=== PATIENT | female | born 1975 | race Asian ===

== ENCOUNTER 2016-10-21 04:52 | Inpatient (IN) | payer OTHER ==
[~2016-10-21] VITALS: Ht 165.1 cm; Wt 54.4 kg
[2016-10-21 05:06] VITALS: BP 113/74
--- NOTE | 2016-10-21 05:27 | Emergency Room Report ---
History of Present Illness General Chief Complaint: Allergic Reaction Source: Patient Present Illness [facility] This is a 41-year-old female who is right-hand dominant. She presents with chief complaint of possible allergic reaction to her right hand. She woke up at 2 AM felt pain in her right hand. It then swell up. Now is tracking up her arm to the axilla area. Pain is throbbing 10 out of 10. [place] warm to the touch. Denies any trauma. She said she had a similar reaction to her right lower leg a couple weeks ago. Seen a cannon pinion adjuster receive a shot in her buttock. She thinks it was antibiotics. Denies any other complaint. Allergies: Coded Allergies: ASPIRIN (Verified Allergy, Intermediate, hives, 10/21/16) Patient History Past Medical History: see triage record, old chart reviewed Past Surgical History: other Pertinent Family History: none Social History: Denies: smoking Now: No Immunizations: other Reviewed Nursing Documentation: PMH: Agreed, PSxH: Agreed Nursing Documentation-PMH Past Medical History: No History, Except For Hx Gastrointestinal Problems: Yes - Diverticulitis Review of Systems Eye: Denies: blurred vision, eye pain ENT: Denies: ear pain, nose congestion, throat swelling Respiratory: Denies: cough, shortness of breath Cardiovascular: Denies: chest pain, palpitations Gastrointestinal: Denies: abdominal pain, diarrhea, nausea, vomiting Musculoskeletal: Denies: back pain, joint pain Skin: Denies: rash Neurological: Denies: headache, numbness Endocrine: Denies: increased thirst, increased urine Hematologic/Lymphatic: Denies: easy bruising All Other Systems: negative except mentioned in HPI Physical Exam Vital Signs Date Time Temp Pulse Resp B/P Pulse Ox O2 Delivery O2 Flow Rate FiO2 10/21/16 04:57 98.1 87 18 113/74 98 Room Air vitals normal Sp02 EP Interpretation: reviewed, normal General Appearance: well appearing, no apparent distress, alert Head: normocephalic, atraumatic Eyes: bilateral eye EOMI, bilateral eye PERRL ENT: hearing grossly normal, normal pharynx Neck: full range of motion, supple, no meningismus Respiratory: chest non-tender, lungs clear, normal breath sounds Cardiovascular #1: regular rate, rhythm, no murmur Gastrointestinal: normal bowel sounds, non tender, no mass, no organomegaly, no bruit, non-distended Musculoskeletal: back normal, gait/station normal, normal range of motion, other - Right hand: She has diffuse edema to her hand. Warm to the touch. Tender to palpation. No crepitance. There is a small abrasion in the dorsal aspect just proximal to the fifth metacarpal joint. No abscess noted. There is lymphangitic spread up the bicep area. Neurologic: alert, oriented x3 Psychiatric: mood/affect normal Skin: warm/dry Medical Decision Making Diagnostic Impression: Primary Impression: Cellulitis of hand, right Additional Impression: Acute lymphangitis ER Course This patient presents with cellulitis of her hand with lymphangitic spread to the axilla area. Because of the aggressive nature, she warrant admission for IV antibiotics. Will also cover for MRSA. I see no evidence of septic joint or necrotizing fasciitis. No evidence of any abscess. Last Vital Signs Date Time Temp Pulse Resp B/P Pulse Ox O2 Delivery O2 Flow Rate FiO2 10/21/16 05:06 98.1 87 18 113/74 98 Room Air Status: improved Disposition: ADMITTED INPATIENT Condition: Serious HERNANDO DAMON M.D. Oct 21, 2016 05:27
[2016-10-21] MEDS ORDERED: Vancomycin 1gm inj IVPB ONE (05:28)
[2016-10-21] MEDS ORDERED: Ketorolac 60mg Inj IV ONE (05:30)
[2016-10-21 06:00] VITALS: BP 107/54
[2016-10-21 06:48] LABS: ANION GAP 14 (5-15); CALCIUM 8.9 mg/dL (8.6-10.2); CARBON DIOXIDE 25 mEQ/L (20-30); CHLORIDE 95 mEQ/L (98-107); CREATININE 0.7 mg/dL (0.5-0.9); GLOMERULAR FILTRATION RATE > 60 mL/min (>60); HEMOLYSIS 22; SODIUM 134 mEQ/L (135-145)
[2016-10-21 06:53] LABS: BASOPHILS % (AUTO) 0.4 % (0.0-2.0); EOSINOPHILS % (AUTO) 1.3 % (0.0-3.0); LYMPHOCYTES % (AUTO) 27.3 % (20.0-45.0); MEAN CORPUSCULAR HEMOGLOBIN 35.5 PG (27.0-31.0); MEAN CORPUSCULAR HGB CONC 34.3 G/DL (32.0-36.0); MEAN CORPUSCULAR VOLUME 103 FL (80-99); MEAN PLATELET VOLUME 6.4 FL (6.5-10.1); MONOCYTES % (AUTO) 3.3 % (1.0-10.0); NEUTROPHILS % (AUTO) 67.7 % (45.0-75.0); PLATELET COUNT 235 K/UL (150-450); RED BLOOD COUNT 4.21 M/UL (4.20-5.40); RED CELL DISTRIBUTION WIDTH 12.3 % (11.6-14.8); WHITE BLOOD COUNT 6.8 K/UL (4.8-10.8)
[2016-10-21] MEDS ORDERED: NKM (07:07)
[2016-10-21] MEDS ORDERED: Norco 5mg/325mg tab ORAL ONE (08:45)
[2016-10-21 10:00] VITALS: BP 106/62
[2016-10-21] MEDS ORDERED: Zolpidem 5mg tab ORAL PRN (10:15)
[2016-10-21] MEDS ORDERED: Mylanta II UD 30ml ORAL PRN (10:45)
[2016-10-21] MEDS ORDERED: D5W 50 ML IV ONE (11:49)
[2016-10-21] MEDS ORDERED: Tubing IV Cassette IV ONE (11:49)
[2016-10-21] MEDS ORDERED: Cefepime 1gm vial ONE (11:49)
[2016-10-21] MEDS: Morphine Sulfate 2mg/ml Inj IVP PRN ×2 (11:51→18:05)
[2016-10-21] MEDS: CEFEPIME IVPB SCH ×4 (11:55→20:48)
[2016-10-21] MEDS: [UNRECOGNIZED DRUG - OTHER] IVPB SCH ×4 (11:55→20:48)
[2016-10-21] MEDS: LORazepam Inj 2mg/ml 1ml IV PRN (14:12)
[2016-10-21 16:00] VITALS: BP 131/79
[2016-10-21] MEDS: Vancomycin 1gm/D5W 250ml IVPB SCH ×2 (17:51)
[2016-10-21] MEDS ORDERED: DiphenhydrAMINE 50mg/ml Inj IVP PRN (19:00)
[2016-10-21 20:00] VITALS: BP 110/63
[2016-10-21] MEDS: Heparin 5000 units/ml inj SUBQ SCH (20:48)
[2016-10-21] MEDS ORDERED: Miralax 17gm pkt ORAL PRN (21:00)
[2016-10-22] VITALS (7 sets, daily range): BP systolic 89–108; BP diastolic 57–69
[2016-10-22] MEDS ORDERED: Vancomycin 1gm inj IVPB ONE (05:33)
[2016-10-22] MEDS: Vancomycin 1gm/D5W 250ml IVPB SCH ×4 (05:51→17:47)
[2016-10-22] MEDS: LORazepam Inj 2mg/ml 1ml IV PRN ×2 (05:51→20:34)
[2016-10-22 06:36] LABS: BASOPHILS % (AUTO) 0.5 % (0.0-2.0); EOSINOPHILS % (AUTO) 4.5 % (0.0-3.0); LYMPHOCYTES % (AUTO) 39.1 % (20.0-45.0); MEAN CORPUSCULAR HEMOGLOBIN 34.8 PG (27.0-31.0); MEAN CORPUSCULAR HGB CONC 32.4 G/DL (32.0-36.0); MEAN CORPUSCULAR VOLUME 107 FL (80-99); MEAN PLATELET VOLUME 6.5 FL (6.5-10.1); MONOCYTES % (AUTO) 6.2 % (1.0-10.0); NEUTROPHILS % (AUTO) 49.6 % (45.0-75.0); PLATELET COUNT 181 K/UL (150-450); RED CELL DISTRIBUTION WIDTH 11.4 % (11.6-14.8); WHITE BLOOD COUNT 3.7 K/UL (4.8-10.8)
[2016-10-22 06:47] LABS: HEMOGLOBIN A1C 4.5 % (< 6.0)
[2016-10-22 06:55] LABS: ALANINE AMINOTRANSFERASE 14 U/L (3-33); ALBUMIN/GLOBULIN RATIO 1.3 (1.0-2.7); ANION GAP 14 (5-15); ASPARTATE AMINO TRANSFERASE 20 U/L (5-40); CALCIUM 8.5 mg/dL (8.6-10.2); CARBON DIOXIDE 23 mEQ/L (20-30); CHLORIDE 103 mEQ/L (98-107); CHOLESTEROL 185 mg/dL (< 200); CHOLESTEROL/HDL RATIO 2.9 (3.3-4.4); CREATININE 0.6 mg/dL (0.5-0.9); GLOMERULAR FILTRATION RATE > 60 mL/min (>60); HEMOLYSIS 12; LDL CHOLESTEROL (CALC.) 96 mg/dL (60-99); POTASSIUM 4.5 mEQ/L (3.4-4.9); SODIUM 140 mEQ/L (135-145); TOTAL PROTEIN 6.1 g/dL (6.6-8.7)
[2016-10-22] MEDS: Heparin 5000 units/ml inj SUBQ SCH ×2 (08:55→20:21)
[2016-10-22] MEDS: [UNRECOGNIZED DRUG - OTHER] IVPB SCH ×2 (08:55)
[2016-10-22] MEDS: CEFEPIME IVPB SCH ×2 (08:55)
--- NOTE | 2016-10-22 09:09 | Consultation ---
Consult Note Consult Note ID CONSULT: Dict# [id number] Assessment/Plan ASSESSMENT: 41 y/o female with: // Acute RUE cellulitis / lymphangitis, m/l staph/strep - no evidence of septic arthritis or necrotizing fasciitis, no significant improvement yet - h/o self-manipulation ( stuck pin in pustule ) - recent similar episode right leg // Acute leukopenia ?ABX, afebrile // No ABX allergies // Full Code PLAN: - continue empiric IV vancomycin d# 2, de-escalate cefepime d# 2 to rocephin ( doubt PSA ), add clindamycin. Continue IV ABX another 24hrs, anticipate transition to PO tomorrow - check MRSA screen, decolonization protocol - check RUE doppler - f/u blood cultures - monitor CBC, temperatures - monitor BMP Thanks! Will follow KHURRAM CORNELL Oct 22, 2016 09:09
[2016-10-22] MEDS ORDERED: Influenza Virus Vaccine 0.5ml IM ONE (09:30)
[2016-10-22] MEDS: cefTRIAXone 1 GM in D5W 50 ML IVPB SCH (12:34)
[2016-10-22] MEDS: Clindamycin 900mg 50 ML IV SCH ×2 (14:32→22:05)
[2016-10-22] MEDS ORDERED: NS 275ml ONE (17:48)
[2016-10-22] MEDS ORDERED: Tubing IV Secondary IV ONE (17:48)
[2016-10-22] MEDS ORDERED: D5W 275ml ONE (17:48)
--- NOTE | 2016-10-22 18:12 | History and Physical ---
History of Present Illness General Date patient seen: Oct 22, 2016 Reason for Hospitalization: Allergic Reaction Present Illness HPI 41-year-old female presented to ER with chief complaint of possible spider bite to her right hand. She woke up at 2 AM felt pain in her right hand. It then swell up. Now is tracking up her arm to the axilla area. Pain is throbbing 10 out of 10. [place] warm to the touch. Denies any trauma. She said she had a similar reaction to her right lower leg a couple weeks ago. She was admitted for IV antibiotics and treatment of her Sepsis. Allergies: Coded Allergies: ASPIRIN (Verified Allergy, Intermediate, hives, 10/21/16) Medication History Scheduled No Known Medications* (NKM - No Known Medications*), 0 ., (Reported) Patient History Healthcare decision maker Resuscitation status Full Code Advanced Directive on File No Review of Systems All Other Systems: negative except mentioned in HPI Physical Exam Lines, tubes and drains: peripheral HEENT: normocephalic, atraumatic Neck: non-tender, normal alignment Respiratory/Chest: chest wall non-tender Breasts: no masses Cardiovascular/Chest: normal rate Abdomen: normal bowel sounds Genitourinary/Rectal: normal genital exam Extremities: inflammation, other - swelling of right Hand Skin Exam: normal pigmentation 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 Last 24 Hour Vital Signs Date Time Temp Pulse Resp B/P Pulse Ox O2 Delivery O2 Flow Rate FiO2 10/22/16 16:55 96/60 10/22/16 16:00 95.7 75 20 89/58 97 Room Air 10/22/16 11:47 97.9 79 18 108/64 97 Room Air 10/22/16 08:12 97.2 57 18 101/66 99 Room Air 10/22/16 04:00 97.3 51 19 102/59 99 Room Air 10/22/16 00:00 97.9 61 19 97/57 98 Room Air 10/21/16 20:00 97.0 97 20 110/63 100 Room Air 82 10/21/16 18:35 97.2 Intake and Output 10/21/16 10/22/16 19:00 07:00 Intake Total 467 ml 500 ml Balance 467 ml 500 ml Intake Oral 200 ml IV Total 467 ml 300 ml # Voids 2 Laboratory Tests Test 10/22/16 04:25 White Blood Count 3.7 K/UL (4.8-10.8) L Red Blood Count 3.50 M/UL (4.20-5.40) L Hemoglobin 12.2 G/DL (12.0-16.0) Hematocrit 37.6 % (37.0-47.0) Mean Corpuscular Volume 107 FL (80-99) H Mean Corpuscular Hemoglobin 34.8 PG (27.0-31.0) H Mean Corpuscular Hemoglobin Concent 32.4 G/DL (32.0-36.0) Red Cell Distribution Width 11.4 % (11.6-14.8) L Platelet Count 181 K/UL (150-450) Mean Platelet Volume 6.5 FL (6.5-10.1) Neutrophils (%) (Auto) 49.6 % (45.0-75.0) Lymphocytes (%) (Auto) 39.1 % (20.0-45.0) Monocytes (%) (Auto) 6.2 % (1.0-10.0) Eosinophils (%) (Auto) 4.5 % (0.0-3.0) H Basophils (%) (Auto) 0.5 % (0.0-2.0) Sodium Level 140 mEQ/L (135-145) Potassium Level 4.5 mEQ/L (3.4-4.9) Chloride Level 103 mEQ/L (98-107) Carbon Dioxide Level 23 mEQ/L (20-30) Anion Gap 14 (5-15) Blood Urea Nitrogen 11 mg/dL (7-23) Creatinine 0.6 mg/dL (0.5-0.9) Estimat Glomerular Filtration Rate > 60 mL/min (>60) Glucose Level 96 mg/dL (74-106) Hemoglobin A1c 4.5 % (< 6.0) Calcium Level 8.5 mg/dL (8.6-10.2) L Total Bilirubin 0.5 mg/dL (0.0-1.2) Aspartate Amino Transf (AST/SGOT) 20 U/L (5-40) Alanine Aminotransferase (ALT/SGPT) 14 U/L (3-33) Alkaline Phosphatase 37 U/L (35-104) Total Protein 6.1 g/dL (6.6-8.7) L Albumin 3.5 g/dL (3.5-5.2) Globulin 2.6 g/dL Albumin/Globulin Ratio 1.3 (1.0-2.7) Triglycerides Level 125 mg/dL (< 150) Cholesterol Level 185 mg/dL (< 200) LDL Cholesterol 96 mg/dL (60-99) HDL Cholesterol 64 mg/dL (> 60) H Cholesterol/HDL Ratio 2.9 (3.3-4.4) L Thyroid Stimulating Hormone (TSH) 5.250 uIU/mL (0.300-4.500) Height (Feet): 5 Height (Inches): 5.00 Weight (Pounds): 120 Medications Current Medications Medications (Trade) Dose Ordered Sig/Bernadette Route PRN Reason Start Time Stop Time Status Last Admin Dose Admin Acetaminophen (Tylenol) 650 mg Q4H PRN ORAL fever>100.5 10/21/16 10:45 11/20/16 10:44 Al Hydroxide/Mg Hydroxide (Mylanta II) 30 ml Q6H PRN ORAL dyspepsia 10/21/16 10:45 11/20/16 10:44 Ceftriaxone Sodium 1 gm/ Dextrose 50 ml @ 100 mls/hr Q24H IVPB 10/22/16 11:00 10/29/16 10:59 10/22/16 12:34 Clindamycin HCl/ Dextrose (Cleocin 900mg) 50 ml @ 100 mls/hr Q8HR IV 10/22/16 14:00 10/29/16 13:59 10/22/16 14:32 Dextrose (Dextrose 50%) STAT PRN IV Hypoglycemia 10/21/16 10:45 11/20/16 10:44 Diphenhydramine HCl (Benadryl) 25 mg Q6H PRN IVP Itching 10/21/16 19:00 11/20/16 18:59 10/21/16 19:33 Heparin Sodium (Porcine) (Heparin 5000 units/ml) 5,000 units EVERY 12 HOURS SUBQ 10/21/16 21:00 11/20/16 20:59 Lorazepam (Ativan 2mg/ml 1ml) 0.5 mg Q4H PRN IV For Anxiety 10/21/16 10:45 10/28/16 10:44 10/22/16 05:51 Morphine Sulfate (Morphine Sulfate) 1 mg Q4H PRN IVP For Pain 10/21/16 10:45 10/28/16 10:44 10/21/16 18:05 Mupirocin 1 applic 1 applic BID TOPIC 10/22/16 11:00 10/27/16 10:59 10/22/16 17:47 Ondansetron HCl (Zofran) 4 mg Q6H PRN IVP Nausea & Vomiting 10/21/16 10:45 11/20/16 10:44 Polyethylene Glycol (Miralax) 17 gm HSPRN PRN ORAL Constipation 10/21/16 21:00 11/20/16 20:59 Vancomycin HCl 1 ea 1 ea DAILY PRN MISC Per rx protocol 10/21/16 10:15 11/20/16 10:14 Vancomycin HCl/ Dextrose (Vancomycin/D5W 250ml) 250 ml @ 167 mls/hr Q12H IVPB 10/21/16 18:00 10/26/16 17:59 10/22/16 17:47 Zolpidem Tartrate (Ambien) 5 mg HSPRN PRN ORAL Insomnia 10/21/16 10:15 11/20/16 10:14 Assessment/Plan Problem List: (1) Acute lymphangitis ICD Codes: L03.91 - Acute lymphangitis, unspecified SNOMED: 4371989 (2) Cellulitis of hand, right ICD Codes: L03.113 - Cellulitis of right upper limb SNOMED: 78042663 Assessment/Plan ID evaluation IV antibioitcs surgical consult called LATA EDWARDS Oct 22, 2016 18:12
--- NOTE | 2016-10-22 18:49 | General Progress Note ---
Progress Note Progress Note Chart reviewed, pt examined, consult dictated. Impression: soft tissue infection of right hand, apparently responding to parenteral antibiotics. We will observe for now. We will await results of venous doppler, will continue with antibiotics for now. Jonathan Goode MD Oct 22, 2016 18:49
--- NOTE | 2016-10-22 20:17 | Consultation ---
DATE OF CONSULTATION: 10/22/2016 INFECTIOUS DISEASE CONSULTATION: REQUESTING PHYSICIAN: Aleks Grey M.D. REASON FOR CONSULTATION: Cellulitis. HISTORY OF PRESENT ILLNESS: This is a 41-year-old otherwise healthy female admitted on 10/21/2016 with right upper extremity swelling, pain, and erythema. The patient denies bladder trauma of the right leg. The patient states developed pustule on the right thenar eminence and stuck a needle in it to drain. Subsequently, she developed worsening swelling, erythema, and warmth. She is afebrile without leukocytosis. Blood cultures, no growth to date on empiric vancomycin and cefepime. ID now consulted to assist in management. PAST MEDICAL HISTORY: None. PAST SURGICAL HISTORY: None. MEDICATIONS: 1. Vancomycin. 2. Cefepime. 3. Heparin. ALLERGIES: Aspirin. SOCIAL HISTORY: Denies tobacco, alcohol, or illicit drug abuse. FAMILY HISTORY: Noncontributory. REVIEW OF SYSTEMS: As per history present illness. Ten systems reviewed. All pertinent positives and negatives noted. PHYSICAL EXAMINATION: VITAL SIGNS: Maximum temperature 98.7 degrees, blood pressure 101/66, heart rate in the 50s, respiratory rate 18, and saturating 99% on room air. GENERAL: No apparent distress. Nontoxic appearing. CARDIOVASCULAR: Regular rate and rhythm. No murmurs. PULMONARY: Clear to auscultation bilaterally. ABDOMEN: Bowel sounds present. Soft, nondistended, and nontender. EXTREMITIES: Right upper extremity erythema, edema, and warmth. No fluctuance. LABORATORY DATA: White blood cell count 3.7 decreased from 6.8, hemoglobin 12.2, and platelets 181,000. Sodium 140, potassium 4.5, chloride 103, bicarbonate 23, BUN 11, and creatinine 0.6. Liver function tests within normal limits. MICROBIOLOGY: On 10/21/2016 blood culture no growth to date. IMAGING: None. ASSESSMENT: 1. Acute right upper extremity cellulitis and lymphangitis most likely Staphylococcus or Streptococcus. The patient did not self manipulated right extremity with a needle. She does note significant improvement yet with intravenous antibiotics overnight. She had recent similar episodes in the right leg. 2. Acute leukopenia; may be due to antibiotics, afebrile. 3. No antibiotic allergies. 4. Full Code. PLAN: 1. Continue empiric IV vancomycin day #2 and escalate cefepime to Rocephin as doubt pseudomonal involvement and does not require coverage. We will add clindamycin as well. Anticipate continuing IV antibiotics another 24 hours and transition to oral therapy as early as tomorrow. 2. Check MRSA screen and decolonization protocol. 3. Check right upper extremity Doppler rule out DVT. 4. Follow up blood cultures. 5. Monitor CBC and temperatures. 6. Monitor BMP. Thank you. We will follow. Sandro Ordonez M.D. DR: Zeina JOB#: [id number] CC: Aleks Grey M.D.; Fax#: [phone] Gibbs M.D; Fax#: [phone]
[2016-10-23] VITALS: BP 110/72
--- NOTE | 2016-10-23 00:58 | Consultation ---
DATE OF CONSULTATION: 10/22/2016 SURGICAL CONSULTATION REASON FOR CONSULTATION: Right hand infection. HISTORY OF PRESENT ILLNESS: This 41-year-old [place] female, presented to the hospital yesterday with the onset of swelling and pain in the right hand. The patient had a problem three weeks ago with a soft tissue infection on the dorsum of the right foot. She was able to antolin the infection. She later developed some pain and swelling in the right calf. She saw a delimber operator, who gave her an intramuscular antibiotic shot. She had some resolution of the right calf infection. The patient denies any history of fever or chills. She denies any history of trauma. PAST MEDICAL HISTORY: None. PREVIOUS SURGERIES: None. MEDICATIONS: None. ALLERGIES: Aspirin. SOCIAL HISTORY: Tobacco, one to two cigarettes per day. Alcohol, the patient has one alcoholic beverage per day. 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 FAMILY HISTORY: Positive for malignancy in the maternal grandmother. The patient's mother was diagnosed with diverticulitis at the age of 58. REVIEW OF SYSTEMS: The patient denies any history of migraine headaches or asthma. There is no known history of heart disease. Se denies any history of hepatitis. She states she was diagnosed with diverticulitis in the past. She is a 4, para 0, AB 4 female. Last menstrual period October 15, 2016. PHYSICAL EXAMINATION: GENERAL: Reveals a slender well-developed [place] female, in no acute distress. VITAL SIGNS: Temperature of 97.9 degrees, blood pressure 108/64, pulse 80, and respirations 18. HEENT: Normocephalic. Pupils are equal and reactive to light. There was no scleral icterus. NECK: Supple without adenopathy. LUNGS: Clear. HEART: Showed a regular rhythm without murmurs or gallops. ABDOMEN: Soft. There was no organomegaly. EXTREMITIES: Showed some swelling on the dorsum of the right hand, more along the ulnar aspect. There was an area of skin eruption. There is normal range of motion in all fingers. There was no axillary adenopathy. The patient is presently undergoing an ultrasound of the venous Doppler of the right arm during the examination. LABORATORY DATA: CBC today shows a white blood count of 3700, hemoglobin 12.2 grams percent, hematocrit 37.6%, and platelet count 181,000. Differential shows 49.6 neutrophils, 39.1 lymphocytes, 6.2 monocytes, 4.5% eosinophils, and basophils 0.5. Clinical chemistry showed a sodium of 140, potassium 4.5, chloride 103, bicarbonate 23, BUN 11, and creatinine 0.6. Hemoglobin A1c was 4.5. Calcium 8.5. Total bilirubin 0.5. SGOT 14, SGPT 20, and alkaline phosphatase normal at 37. Total protein 6.1. Albumin 3.5. IMPRESSION: Soft tissue infection of right hand, no obvious abscess. The process appears to be resolving with parenteral antibiotics. PLAN: We will observe for now. We will await the results of the ultrasound of the right arm. Jonathan Goode M.D. DR: CECELIA JOB#: [id number] CC:
[2016-10-23 04:57] VITALS: BP 99/63
[2016-10-23] MEDS: Clindamycin 900mg 50 ML IV SCH ×3 (05:31→21:32)
[2016-10-23] MEDS: LORazepam Inj 2mg/ml 1ml IV PRN (05:40)
[2016-10-23 06:25] LABS: BASOPHILS % (AUTO) 0.3 % (0.0-2.0); EOSINOPHILS % (AUTO) 3.4 % (0.0-3.0); LYMPHOCYTES % (AUTO) 8.4 % (20.0-45.0); MEAN CORPUSCULAR HEMOGLOBIN 34.9 PG (27.0-31.0); MEAN CORPUSCULAR VOLUME 106 FL (80-99); MEAN PLATELET VOLUME 6.1 FL (6.5-10.1); MONOCYTES % (AUTO) 3.6 % (1.0-10.0); NEUTROPHILS % (AUTO) 84.2 % (45.0-75.0); PLATELET COUNT 157 K/UL (150-450); RED BLOOD COUNT 3.52 M/UL (4.20-5.40); RED CELL DISTRIBUTION WIDTH 11.5 % (11.6-14.8); WHITE BLOOD COUNT 5.8 K/UL (4.8-10.8)
[2016-10-23 06:50] LABS: MAGNESIUM 1.8 mg/dL (1.7-2.5); PHOSPHORUS 2.8 mg/dL (2.5-4.8)
[2016-10-23 07:04] LABS: ALANINE AMINOTRANSFERASE 15 U/L (3-33); ALBUMIN/GLOBULIN RATIO 1.4 (1.0-2.7); ANION GAP 15 (5-15); ASPARTATE AMINO TRANSFERASE 20 U/L (5-40); CALCIUM 8.6 mg/dL (8.6-10.2); CARBON DIOXIDE 25 mEQ/L (20-30); CHLORIDE 98 mEQ/L (98-107); CREATININE 0.6 mg/dL (0.5-0.9); GLOMERULAR FILTRATION RATE > 60 mL/min (>60); HEMOLYSIS 12; POTASSIUM 4.3 mEQ/L (3.4-4.9); SODIUM 138 mEQ/L (135-145); TOTAL PROTEIN 6.3 g/dL (6.6-8.7)
[2016-10-23 07:26] LABS: CRP QUANT 1.1 mg/dL (< 0.5)
[2016-10-23 08:00] VITALS: BP 92/57
[2016-10-23 08:03] LABS: ERYTHROCYTE SEDIMENTATION RATE 15 MM/HR (0-20)
[2016-10-23] MEDS: Heparin 5000 units/ml inj SUBQ SCH ×2 (08:04→20:30)
[2016-10-23] MEDS: Vancomycin 1gm/D5W 250ml IVPB SCH ×2 (08:04)
--- NOTE | 2016-10-23 09:25 | General Surgery Progress Note ---
General Surgery-Progress Note Subjective Reason for Consult right hand cellulitis Symptoms: improved Additional Comments patient seen and examined at bedside. doing well. no acute events. states edema improved. pain minimal. no n/v/f/c. Objective Last 24 Hour Vital Signs Date Time Temp Pulse Resp B/P Pulse Ox O2 Delivery O2 Flow Rate FiO2 10/23/16 08:00 97.9 79 20 92/57 98 Room Air 10/23/16 04:57 99.7 94 18 99/63 97 Room Air 10/23/16 00:00 98.4 71 20 110/72 96 Room Air 10/22/16 20:00 97.9 64 18 107/69 98 Room Air 10/22/16 16:55 96/60 10/22/16 16:00 95.7 75 20 89/58 97 Room Air 10/22/16 11:47 97.9 79 18 108/64 97 Room Air I&O Intake and Output 10/22/16 10/23/16 19:00 07:00 Intake Total 700 ml 890 ml Balance 700 ml 890 ml Intake Oral 600 ml 840 ml IV Total 100 ml 50 ml # Voids 3 7 Wound: clean Drains: none Cardiovascular: RSR Respiratory: clear Abdomen: soft, non-tender Extremities: edema - right hand Laboratory Tests Test 10/23/16 04:30 White Blood Count 5.8 K/UL (4.8-10.8) # Red Blood Count 3.52 M/UL (4.20-5.40) L Hemoglobin 12.3 G/DL (12.0-16.0) Hematocrit 37.2 % (37.0-47.0) Mean Corpuscular Volume 106 FL (80-99) H Mean Corpuscular Hemoglobin 34.9 PG (27.0-31.0) H Mean Corpuscular Hemoglobin Concent 33.0 G/DL (32.0-36.0) Red Cell Distribution Width 11.5 % (11.6-14.8) L Platelet Count 157 K/UL (150-450) Mean Platelet Volume 6.1 FL (6.5-10.1) L Neutrophils (%) (Auto) 84.2 % (45.0-75.0) H Lymphocytes (%) (Auto) 8.4 % (20.0-45.0) L Monocytes (%) (Auto) 3.6 % (1.0-10.0) Eosinophils (%) (Auto) 3.4 % (0.0-3.0) H Basophils (%) (Auto) 0.3 % (0.0-2.0) Erythrocyte Sedimentation Rate 15 MM/HR (0-20) Sodium Level 138 mEQ/L (135-145) Potassium Level 4.3 mEQ/L (3.4-4.9) Chloride Level 98 mEQ/L (98-107) Carbon Dioxide Level 25 mEQ/L (20-30) Anion Gap 15 (5-15) Blood Urea Nitrogen 10 mg/dL (7-23) Creatinine 0.6 mg/dL (0.5-0.9) Estimat Glomerular Filtration Rate > 60 mL/min (>60) Glucose Level 112 mg/dL (74-106) H Calcium Level 8.6 mg/dL (8.6-10.2) Phosphorus Level 2.8 mg/dL (2.5-4.8) Magnesium Level 1.8 mg/dL (1.7-2.5) Total Bilirubin 0.4 mg/dL (0.0-1.2) Aspartate Amino Transf (AST/SGOT) 20 U/L (5-40) Alanine Aminotransferase (ALT/SGPT) 15 U/L (3-33) Alkaline Phosphatase 38 U/L (35-104) C-Reactive Protein, Quantitative 1.1 mg/dL (< 0.5) H Total Protein 6.3 g/dL (6.6-8.7) L Albumin 3.7 g/dL (3.5-5.2) Globulin 2.6 g/dL Albumin/Globulin Ratio 1.4 (1.0-2.7) Vancomycin Level Trough 7.0 ug/mL (5.0-12.0) Assessment Post-op Diagnosis right hand cellulitis Plan Additional Comments seems that right hand cellulitis and erythema improving with IV Abx. interesting history with similar episode in right leg that resolved spontaneously. Staph or strep; could be caused by insect bite given small area of punctate wound on hand and healing wound on calf but unsure. no area of fluctuance currently noted. will continue to monitor for now. cellulitis may develop abscess that will require I&D but no surgical intervention currently necessary. Delano Marks MD Oct 23, 2016 09:25
--- NOTE | 2016-10-23 10:04 | Infectious Diseases Prog Note ---
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 ) - recent similar episode right leg // Acute leukopenia ?ABX, afebrile // No ABX allergies // Full Code PLAN: - cont clindamycin d# 2 , upon DC will cont pt on oral Clinda 300 mg tid x 5 days DC rocephin ( doubt PSA ), and DC IV vancomycin d# 3 - check MRSA screen, decolonization protocol - check RUE doppler - f/u blood cultures - monitor CBC, temperatures - monitor BMP Subjective Constitutional: Denies: anorexia, chills, drenching sweats, fatigue, fever, no symptoms, other Allergies: Coded Allergies: ASPIRIN (Verified Allergy, Intermediate, hives, 10/21/16) Objective Vital Signs Last 24 Hour Vital Signs Date Time Temp Pulse Resp B/P Pulse Ox O2 Delivery O2 Flow Rate FiO2 10/23/16 08:00 97.9 79 20 92/57 98 Room Air 10/23/16 04:57 99.7 94 18 99/63 97 Room Air 10/23/16 00:00 98.4 71 20 110/72 96 Room Air 10/22/16 20:00 97.9 64 18 107/69 98 Room Air 10/22/16 16:55 96/60 10/22/16 16:00 95.7 75 20 89/58 97 Room Air 10/22/16 11:47 97.9 79 18 108/64 97 Room Air Height (Feet): 5 Height (Inches): 5.00 Weight (Pounds): 120 HEENT: atraumatic Respiratory/Chest: normal breath sounds Cardiovascular: normal rate Abdomen: soft, non tender Microbiology Date/Time Source Procedure Growth Status 10/21/16 05:30 Blood Blood Culture - Preliminary NO GROWTH AFTER 24 HOURS Resulted 10/21/16 05:30 Blood Blood Culture - Preliminary NO GROWTH AFTER 24 HOURS Resulted Laboratory Tests Test 10/23/16 04:30 White Blood Count 5.8 K/UL (4.8-10.8) # Red Blood Count 3.52 M/UL (4.20-5.40) L Hemoglobin 12.3 G/DL (12.0-16.0) Hematocrit 37.2 % (37.0-47.0) Mean Corpuscular Volume 106 FL (80-99) H Mean Corpuscular Hemoglobin 34.9 PG (27.0-31.0) H Mean Corpuscular Hemoglobin Concent 33.0 G/DL (32.0-36.0) Red Cell Distribution Width 11.5 % (11.6-14.8) L Platelet Count 157 K/UL (150-450) Mean Platelet Volume 6.1 FL (6.5-10.1) L Neutrophils (%) (Auto) 84.2 % (45.0-75.0) H Lymphocytes (%) (Auto) 8.4 % (20.0-45.0) L Monocytes (%) (Auto) 3.6 % (1.0-10.0) Eosinophils (%) (Auto) 3.4 % (0.0-3.0) H Basophils (%) (Auto) 0.3 % (0.0-2.0) Erythrocyte Sedimentation Rate 15 MM/HR (0-20) Sodium Level 138 mEQ/L (135-145) Potassium Level 4.3 mEQ/L (3.4-4.9) Chloride Level 98 mEQ/L (98-107) Carbon Dioxide Level 25 mEQ/L (20-30) Anion Gap 15 (5-15) Blood Urea Nitrogen 10 mg/dL (7-23) Creatinine 0.6 mg/dL (0.5-0.9) Estimat Glomerular Filtration Rate > 60 mL/min (>60) Glucose Level 112 mg/dL (74-106) H Calcium Level 8.6 mg/dL (8.6-10.2) Phosphorus Level 2.8 mg/dL (2.5-4.8) Magnesium Level 1.8 mg/dL (1.7-2.5) Total Bilirubin 0.4 mg/dL (0.0-1.2) Aspartate Amino Transf (AST/SGOT) 20 U/L (5-40) Alanine Aminotransferase (ALT/SGPT) 15 U/L (3-33) Alkaline Phosphatase 38 U/L (35-104) C-Reactive Protein, Quantitative 1.1 mg/dL (< 0.5) H Total Protein 6.3 g/dL (6.6-8.7) L Albumin 3.7 g/dL (3.5-5.2) Globulin 2.6 g/dL Albumin/Globulin Ratio 1.4 (1.0-2.7) Vancomycin Level Trough 7.0 ug/mL (5.0-12.0) Current Medications Medications (Trade) Dose Ordered Sig/Bernadette Route PRN Reason Start Time Stop Time Status Last Admin Dose Admin Acetaminophen (Tylenol) 650 mg Q4H PRN ORAL fever>100.5 10/21/16 10:45 11/20/16 10:44 Al Hydroxide/Mg Hydroxide (Mylanta II) 30 ml Q6H PRN ORAL dyspepsia 10/21/16 10:45 11/20/16 10:44 Ceftriaxone Sodium 1 gm/ Dextrose 50 ml @ 100 mls/hr Q24H IVPB 10/22/16 11:00 10/29/16 10:59 10/22/16 12:34 Clindamycin HCl/ Dextrose (Cleocin 900mg) 50 ml @ 100 mls/hr Q8HR IV 10/22/16 14:00 10/29/16 13:59 10/23/16 05:31 Dextrose (Dextrose 50%) STAT PRN IV Hypoglycemia 10/21/16 10:45 11/20/16 10:44 Diphenhydramine HCl (Benadryl) 25 mg Q6H PRN IVP Itching 10/21/16 19:00 11/20/16 18:59 10/21/16 19:33 Heparin Sodium (Porcine) (Heparin 5000 units/ml) 5,000 units EVERY 12 HOURS SUBQ 10/21/16 21:00 11/20/16 20:59 Lorazepam (Ativan 2mg/ml 1ml) 0.5 mg Q4H PRN IV For Anxiety 10/21/16 10:45 10/28/16 10:44 10/23/16 05:40 Morphine Sulfate (Morphine Sulfate) 1 mg Q4H PRN IVP For Pain 10/21/16 10:45 10/28/16 10:44 10/21/16 18:05 Mupirocin 1 applic 1 applic BID TOPIC 10/22/16 11:00 10/27/16 10:59 10/23/16 08:04 Ondansetron HCl (Zofran) 4 mg Q6H PRN IVP Nausea & Vomiting 10/21/16 10:45 11/20/16 10:44 Polyethylene Glycol (Miralax) 17 gm HSPRN PRN ORAL Constipation 10/21/16 21:00 11/20/16 20:59 Vancomycin HCl 1 ea 1 ea DAILY PRN MISC Per rx protocol 10/21/16 10:15 11/20/16 10:14 Vancomycin HCl/ Dextrose (Vancomycin/D5W 250ml) 250 ml @ 167 mls/hr Q12H IVPB 10/21/16 18:00 10/26/16 17:59 10/23/16 08:04 Zolpidem Tartrate (Ambien) 5 mg HSPRN PRN ORAL Insomnia 10/21/16 10:15 11/20/16 10:14 TAE WONG M.D. Oct 23, 2016 10:04
[2016-10-23] MEDS: cefTRIAXone 1 GM in D5W 50 ML IVPB SCH (11:13)
[2016-10-23 12:00] VITALS: BP 95/56
[2016-10-23 16:00] VITALS: BP 98/68
[2016-10-23] MEDS ORDERED: Vancomycin 1.5 GM in D5W 300 ML IVPB SCH (18:00)
[2016-10-23 20:00] VITALS: BP 99/45
[2016-10-24] VITALS: BP 106/67
[2016-10-24 04:03] VITALS: BP 93/54
[2016-10-24] MEDS: Clindamycin 900mg 50 ML IV SCH (05:01)
--- NOTE | 2016-10-24 08:35 | General Progress Note ---
Progress Note Progress Note pt seen for right hand infection. Problem appears to be resolving with antibiotics. pt states much less pain, decrease in edema and erythema. right hand minimal fullness of dorsum, no erythema or fluctuance. full ROM, all three nerves intact. Labs Test 10/23/16 04:30 White Blood Count 5.8 K/UL (4.8-10.8) Red Blood Count 3.52 M/UL (4.20-5.40) Hemoglobin 12.3 G/DL (12.0-16.0) Hematocrit 37.2 % (37.0-47.0) Mean Corpuscular Volume 106 FL (80-99) Mean Corpuscular Hemoglobin 34.9 PG (27.0-31.0) Mean Corpuscular Hemoglobin Concent 33.0 G/DL (32.0-36.0) Red Cell Distribution Width 11.5 % (11.6-14.8) Platelet Count 157 K/UL (150-450) Mean Platelet Volume 6.1 FL (6.5-10.1) Neutrophils (%) (Auto) 84.2 % (45.0-75.0) Lymphocytes (%) (Auto) 8.4 % (20.0-45.0) Monocytes (%) (Auto) 3.6 % (1.0-10.0) Eosinophils (%) (Auto) 3.4 % (0.0-3.0) Basophils (%) (Auto) 0.3 % (0.0-2.0) Erythrocyte Sedimentation Rate 15 MM/HR (0-20) Sodium Level 138 mEQ/L (135-145) Potassium Level 4.3 mEQ/L (3.4-4.9) Chloride Level 98 mEQ/L (98-107) Carbon Dioxide Level 25 mEQ/L (20-30) Anion Gap 15 (5-15) Blood Urea Nitrogen 10 mg/dL (7-23) Creatinine 0.6 mg/dL (0.5-0.9) Estimat Glomerular Filtration Rate > 60 mL/min (>60) Glucose Level 112 mg/dL (74-106) Calcium Level 8.6 mg/dL (8.6-10.2) Phosphorus Level 2.8 mg/dL (2.5-4.8) Magnesium Level 1.8 mg/dL (1.7-2.5) Total Bilirubin 0.4 mg/dL (0.0-1.2) Aspartate Amino Transf (AST/SGOT) 20 U/L (5-40) Alanine Aminotransferase (ALT/SGPT) 15 U/L (3-33) Alkaline Phosphatase 38 U/L (35-104) C-Reactive Protein, Quantitative 1.1 mg/dL (< 0.5) Total Protein 6.3 g/dL (6.6-8.7) Albumin 3.7 g/dL (3.5-5.2) Globulin 2.6 g/dL Albumin/Globulin Ratio 1.4 (1.0-2.7) Vancomycin Level Trough 7.0 ug/mL (5.0-12.0) Last 24 Hour Vital Signs Date Time Temp Pulse Resp B/P Pulse Ox O2 Delivery O2 Flow Rate FiO2 10/24/16 04:03 97.4 58 18 93/54 98 Room Air 10/24/16 00:00 97.4 69 18 106/67 97 Room Air 10/23/16 20:00 98.2 88 20 99/45 96 Room Air 10/23/16 16:00 97.7 78 18 98/68 98 Room Air 10/23/16 12:00 99.0 68 18 95/56 97 Room Air imp resolving infection right hand. no need for surgical intervention at present RUDY NYE Oct 24, 2016 08:35
[2016-10-24 08:42] VITALS: BP 88/52
[2016-10-24] MEDS: Heparin 5000 units/ml inj SUBQ SCH (09:00)
--- NOTE | 2016-10-24 09:34 | Infectious Diseases Prog Note ---
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 ) - recent similar episode right leg // Acute leukopenia ?ABX, afebrile // RUE doppler : no DVT // No ABX allergies // Full Code PLAN: - cont clindamycin d# 3 , upon DC will cont pt on oral Clinda 300 mg tid x 5 days DC rocephin ( doubt PSA ), and DC IV vancomycin d# 3 - f/u blood cultures - monitor CBC, temperatures - monitor BMP Subjective Constitutional: Denies: anorexia, chills, drenching sweats, fatigue, fever, no symptoms, other Allergies: Coded Allergies: ASPIRIN (Verified Allergy, Intermediate, hives, 10/21/16) Objective Vital Signs Last 24 Hour Vital Signs Date Time Temp Pulse Resp B/P Pulse Ox O2 Delivery O2 Flow Rate FiO2 10/24/16 08:42 97.8 67 20 88/52 98 Room Air 10/24/16 04:03 97.4 58 18 93/54 98 Room Air 10/24/16 00:00 97.4 69 18 106/67 97 Room Air 10/23/16 20:00 98.2 88 20 99/45 96 Room Air 10/23/16 16:00 97.7 78 18 98/68 98 Room Air 10/23/16 12:00 99.0 68 18 95/56 97 Room Air Height (Feet): 5 Height (Inches): 5.00 Weight (Pounds): 120 HEENT: anicteric Respiratory/Chest: lungs clear Cardiovascular: normal rate Abdomen: no organomegaly Microbiology Date/Time Source Procedure Growth Status 10/22/16 13:10 Nasal Nares MRSA Culture - Final NO METHICILLIN RESISTANT STAPH AUREUS... Complete Current Medications Medications (Trade) Dose Ordered Sig/Bernadette Route PRN Reason Start Time Stop Time Status Last Admin Dose Admin Acetaminophen (Tylenol) 650 mg Q4H PRN ORAL fever>100.5 10/21/16 10:45 11/20/16 10:44 Al Hydroxide/Mg Hydroxide (Mylanta II) 30 ml Q6H PRN ORAL dyspepsia 10/21/16 10:45 11/20/16 10:44 Clindamycin HCl/ Dextrose (Cleocin 900mg) 50 ml @ 100 mls/hr Q8HR IV 10/22/16 14:00 10/29/16 13:59 10/24/16 05:01 Dextrose (Dextrose 50%) STAT PRN IV Hypoglycemia 10/21/16 10:45 11/20/16 10:44 Diphenhydramine HCl (Benadryl) 25 mg Q6H PRN IVP Itching 10/21/16 19:00 11/20/16 18:59 10/21/16 19:33 Heparin Sodium (Porcine) (Heparin 5000 units/ml) 5,000 units EVERY 12 HOURS SUBQ 10/21/16 21:00 11/20/16 20:59 Lorazepam (Ativan 2mg/ml 1ml) 0.5 mg Q4H PRN IV For Anxiety 10/21/16 10:45 10/28/16 10:44 10/23/16 05:40 Morphine Sulfate (Morphine Sulfate) 1 mg Q4H PRN IVP For Pain 10/21/16 10:45 10/28/16 10:44 10/21/16 18:05 Mupirocin 1 applic 1 applic BID TOPIC 10/22/16 11:00 10/27/16 10:59 10/23/16 17:31 Ondansetron HCl (Zofran) 4 mg Q6H PRN IVP Nausea & Vomiting 10/21/16 10:45 11/20/16 10:44 Polyethylene Glycol (Miralax) 17 gm HSPRN PRN ORAL Constipation 10/21/16 21:00 11/20/16 20:59 Zolpidem Tartrate (Ambien) 5 mg HSPRN PRN ORAL Insomnia 10/21/16 10:15 11/20/16 10:14 TAE WONG M.D. Oct 24, 2016 09:34
[2016-10-24] MEDS ORDERED: CLEOCIN150 MG ORAL (12:02)
[2016-10-24] MEDS ORDERED: NS 550ML IV ONE (12:59)
--- NOTE | 2016-10-25 12:28 | Discharge Summary ---
Discharge Summary Hospital Course Date of Admission Oct 21, 2016 at 06:00 Date of Discharge Oct 24, 2016 at 13:00 Admitting Diagnosis cellulitis of right hand HPI Estela Canales is a 41 year old female who was admitted on Oct 21, 2016 at 06:00 for Cellulitis Of Right Hand Hospital Course [id number] Discharge Discharge Disposition Patient was discharged to Home (01) Discharge Diagnoses: Kasandra Terrell NP Oct 25, 2016 12:28
--- NOTE | 2016-10-26 02:58 | Discharge Summary 2 SIG ---
DATE OF ADMISSION: 10/21/2016 DATE OF DISCHARGE: 10/24/2016 CONSULTANTS: 1. Sandro Ordonez M.D. 2. Jonathan Goode M.D. BRIEF HOSPITAL COURSE: The patient is a 41-year-old female, who presented to the ED complaining of possible spider bite to her hand and woke up in the morning and felt pain and swelling. Swelling has progressed over to arm and to the axilla area and pain is 10/10. She had similar reaction to her right lower leg couple of weeks ago and was admitted for IV antibiotics. Dr. Ordonez was consulted. The patient had no evidence of septic arthritis or necrotizing fasciitis. She was given initially Rocephin and was changed to clindamycin and IV vancomycin. Surgical evaluation was done. Cellulitis improved with IV antibiotic. There was no area of fluctuance noted. No abscess. No surgical intervention indicated. Ultrasound of the right upper extremity reveals patency of the internal jugular, subclavian, axillary, and brachial vein. The basilic vein was patent with normal spontaneous flow within venous segments. The patient was eventually discharged home and advised to continue clindamycin 300 mg for five days. FINAL DIAGNOSES: 1. Acute right upper arm cellulitis, most likely Staph/Strep. 2. Acute lymphangitis. Aleks Grey M.D. I have been assigned to dictate discharge summary on this account and I was not involved in the patient's management. Kasandra Terrell N.P. DR: João JOB#: [id number] CC: LEANDRO
--- NOTE | 2016-10-30 22:39 | Diagnostic Imaging Report ---
APPROVED REPORT CPT Code: 15561 Present Symptoms Upper Extremity Pain: Right Upper Extremity Edema: Right RIGHT UPPER EXTREMITY: Venous imaging reveals patency of the internal jugular, subclavian, axillary and brachial veins. The basilic vein is also patent. Doppler indicates normal spontaneous flow within these venous segments. The cephalic vein was not well visualized.
== END 2016-10-24 13:00 | disposition home or self-care (01) | DRG 603 ==
LOC: EMR 05:41 → 4W 06:00 → EDBEDREQ 07:37 → 4W 16:19
DX: L03.113 Cellulitis of right upper limb (principal); B95.8 Unspecified staphylococcus as the cause of diseases classified elsewhere; I89.1 Lymphangitis; Z72.0 Tobacco use; B95.5 Unspecified streptococcus as the cause of diseases classified elsewhere; Z23 Encounter for immunization
CPT/HCPCS: 36415; 80048; 80053; 80061; 80202; 83036; 83735; 84100; 84443; 85025; 85651; 86140; 87040; 87081; 93971; J2405; Q2036; S0077